=== PATIENT | male | born 1980 | race Caucasian/White ===

== ENCOUNTER 2018-11-19 08:55 | Outpatient (CLI) | payer BC ==
--- NOTE | 2018-11-19 11:33 | BD ---
BONE DENSITOMETRY USING DEXA: HISTORY: Crohns disease of the small intestine, without complications. Exam requested to evaluate for osteopo rosis. LUMBAR SPINE BMD (g/cm2) T-SCORE Z-SCORE L1 0.789 -2.6 -2.6 L2 0.904 -1.7 -1.7 L3 0.906 -1.8 -1.8 L4 0.880 -1.9 -1.9 TOTAL 0.869 -2.0 -1.9 NECK 0.738 -1.4 -0.9 TOTAL 0.956 -0.5 0.3 IMPRESSION: Osteopenia. POS: [facility]
== END 2018-11-19 08:56 | disposition home or self-care (01) ==
LOC: BICMAMMO 08:55
PROVIDERS: ATTEND Internal Medicine Gastroenterology
DX: Z13.820 Encounter for screening for osteoporosis (principal); K50.00 Crohn's disease of small intestine without complications; K91.850 Pouchitis; M85.88 Other specified disorders of bone density and structure, other site
CPT/HCPCS: 77080

== ENCOUNTER 2019-07-01 07:54 | Day surgery (SDC) | payer BC ==
[2019-06-30 16:45] VITALS: BMI 27.2
[2019-07-01] MEDS ORDERED: ceFAZolin Sodium (SDC) 2 GM/100 ML BAG ONE (09:13)
[2019-07-01] MEDS ORDERED: Bupivacaine/Epinephrine 0.25% 30 ML VIAL ONE (09:49)
[2019-07-01] MEDS ORDERED: Fentanyl 250 MCG/5 ML VIAL ONE (10:28)
[2019-07-01] MEDS ORDERED: Fentanyl 100 MCG/2 ML VIAL ONE ×2 (11:38→12:02)
--- NOTE | 2019-07-01 12:07 | OP ---
DATE OF PROCEDURE: 07/01/2019 PREOPERATIVE DIAGNOSIS: Crohn disease with perineal abscess. POSTOPERATIVE DIAGNOSIS: Crohn disease with perineal abscess. PROCEDURES PERFORMED: Incision and drainage of perineal abscess with cultures taken, exam under anesthesia (limited by the patient's ileoanal stricture). ANESTHESIA: General. ESTIMATED BLOOD LOSS: 50 mL. COMPLICATIONS: None. SPECIMEN: Cultures taken for anaerobes and aerobes. DESCRIPTION OF PROCEDURE: The patient was taken to the operating room and laid supine on the operating room table. After general anesthetic was obtained, the perineum and perianal areas were prepped and draped in a sterile fashion. An elliptical incision was used to ellipse out full thickness into the abscess cavity of the perineum at the base of the scrotum. There was some tunneling slightly inferior, but no obvious long fistula tract going down to the anus. This abscess cavity was deep and had a very thick wall. A portion of the wall was sent to Path for final diagnosis. Cultures were taken. The wound was irrigated. Exam under anesthesia was limited secondary to the patient's ileoanal stricture. There was no obvious fistula can be seen. The abscess cavity was packed using 1-inch iodoform gauze. Sterile dressings were placed. Local anesthetic was infiltrated around the abscess cavity. The patient was sent to Recovery in stable condition. All instrument counts, needle counts, and lap counts were correct. Job ID: [id number]
[2019-07-01] MEDS ORDERED: HYDROcodone/Acetaminophen 5/325 mg Tablet ONE (13:32)
== END 2019-07-01 15:15 | disposition home or self-care (01) ==
LOC: SDC 07:54
PROVIDERS: ATTEND Surgery
PROC: 0J9B0ZZ Drainage of Perineum Subcutaneous Tissue and Fascia, Open Approach (ICD-10-PCS; principal; 2019-07-01)
DX: L02.215 Cutaneous abscess of perineum (principal); K50.90 Crohn's disease, unspecified, without complications; D64.9 Anemia, unspecified; Z79.52 Long term (current) use of systemic steroids; Z79.899 Other long term (current) drug therapy
CPT/HCPCS: 87070; 87205; 88304; J0690; J3010